=== PATIENT | female | born 1985 | race American Indian/Alaskan Native ===

== ENCOUNTER 2018-04-14 19:50 | Emergency (ER) | payer OTHER ==
[2018-04-14 20:10] VITALS: BP 122/100
--- NOTE | 2018-04-15 02:50 | Emergency Department Report ---
- General Chief Complaint: Upper Respiratory Infection Stated Complaint: FLU SYMPTOMS Time Seen by Provider: 04/15/18 02:45 Source: patient Mode of arrival: Ambulatory Limitations: No Limitations - History of Present Illness Initial Comments: 32-year-old Georgian female comes in for chills headache often nonproductive cough states that she coughs it wakes her up from sleep. States that she has occasional wheezing. She denies any fever. She reports that the symptoms have been going on for greater than 2 weeks. She does admit to having sick contact. Admits to nasal congestion headache frontally located, sinus pressure, cough, decrease in energy. She didn't taken her [id number] Flonase, Tylenol severe cold and flu, Benadryl, [place] cold and cough as well as Robitussin. MD Complaint: cough, nasal congestion, sinus pain -: week(s) (2) Severity scale (0 -10): 4 Consistency: intermittent Improves With: nothing Worsens With: nothing Context: sick contacts Associated Symptoms: chills, headache, nasal congestion, cough, right sweats. denies: fever, rhinorrhea, nausea, vomiting Treatments Prior to Arrival: "cold medicine" - Related Data Previous Rx's Medication Instructions Recorded Last Taken Type Albuterol Sulfate [Ventolin HFA] 2 puff IH Q4H PRN #1 hfa.aer.ad 05/10/14 Unknown Rx Azithromycin [Zithromax Z-ERNESTO] 250 mg PO DAILY #6 tablet 05/10/14 Unknown Rx Codeine Phosphate/Guaifenesin 10 ml PO Q6H PRN #8 oz 05/10/14 Unknown Rx [Guaifenesin-Codeine Syrup] methylPREDNISolone [Medrol Dose 4 mg PO BID #1 dosepack 05/10/14 Unknown Rx Ernesto] medroxyPROGESTERone ACETATE 5 mg PO QDAY #5 tablet 03/18/15 Unknown Rx [Provera] Benzonatate [Tessalon Perle] 100 mg PO TID #15 capsule 04/15/18 Unknown Rx Cephalexin [Keflex] 500 mg PO BID #14 capsule 04/15/18 Unknown Rx Allergies Allergy/AdvReac Type Severity Reaction Status Date / Time No Known Allergies Allergy Unverified 05/10/14 17:29 ED Review of Systems ROS: Stated complaint: FLU SYMPTOMS Other details as noted in HPI Constitutional: chills, malaise. denies: fever ENT: congestion. denies: ear pain, throat pain Respiratory: cough, wheezing Cardiovascular: denies: chest pain, palpitations Gastrointestinal: denies: abdominal pain, nausea, diarrhea ED Past Medical Hx - Past Medical History Previous Medical History?: Yes Hx Asthma: Yes Additional medical history: Vaginal delivery - Surgical History Past Surgical History?: Yes Additional Surgical History: hyster - Social History Smoking Status: Never Smoker Substance Use Type: None - Medications Home Medications: Home Medications Medication Instructions Recorded Confirmed Last Taken Type Albuterol Sulfate [Ventolin HFA] 2 puff IH Q4H PRN #1 hfa.aer.ad 05/10/14 Unknown Rx Azithromycin [Zithromax Z-ERNESTO] 250 mg PO DAILY #6 tablet 05/10/14 Unknown Rx Codeine Phosphate/Guaifenesin 10 ml PO Q6H PRN #8 oz 05/10/14 Unknown Rx [Guaifenesin-Codeine Syrup] methylPREDNISolone [Medrol Dose 4 mg PO BID #1 dosepack 05/10/14 Unknown Rx Ernesto] medroxyPROGESTERone ACETATE 5 mg PO QDAY #5 tablet 03/18/15 Unknown Rx [Provera] Benzonatate [Tessalon Perle] 100 mg PO TID #15 capsule 04/15/18 Unknown Rx Cephalexin [Keflex] 500 mg PO BID #14 capsule 04/15/18 Unknown Rx ED Physical Exam - General Limitations: No Limitations General appearance: alert, in no apparent distress - Head Head exam: Present: atraumatic, normocephalic - Eye Eye exam: Present: normal appearance - ENT ENT exam: Present: mucous membranes moist - Neck Neck exam: Present: normal inspection - Respiratory Respiratory exam: Present: normal lung sounds bilaterally. Absent: respiratory distress - Cardiovascular Cardiovascular Exam: Present: regular rate, normal rhythm. Absent: systolic murmur, diastolic murmur, rubs, gallop - GI/Abdominal GI/Abdominal exam: Present: soft, normal bowel sounds - Extremities Exam Extremities exam: Present: normal inspection - Back Exam Back exam: Present: normal inspection - Neurological Exam Neurological exam: Present: alert, oriented X3 - Psychiatric Psychiatric exam: Present: normal affect, normal mood - Skin Skin exam: Present: warm, dry, intact, normal color. Absent: rash ED Course Vital Signs 04/14/18 20:06 Temperature 98.5 F Pulse Rate 88 Respiratory 16 Rate Blood Pressure 122/100 O2 Sat by Pulse 97 Oximetry ED Medical Decision Making - Medical Decision Making Patient has been evaluated by this provider fast track. Complete antibiotics as prescribed. Take cough medication as needed. If symptoms persist or gets worse please follow up with her primary care provider. Critical care attestation.: If time is entered above; I have spent that time in minutes in the direct care of this critically ill patient, excluding procedure time. ED Disposition Clinical Impression: Upper respiratory infection, acute Acute sinusitis Qualifiers: Sinusitis location: pansinusitis Recurrence: non-recurrent Qualified Code(s): J01.40 - Acute pansinusitis, unspecified Disposition: TO HOME OR SELFCARE Is pt being admited?: No Does the pt Need Aspirin: No Condition: Stable Instructions: Upper Respiratory Infection (ED) Additional Instructions: Please complete antibiotics as prescribed. Take cough medication as prescribed. Continue taking her Zyrtec's and using her Flonase. If her symptoms persist or gets worse follow-up with her primary care provider Prescriptions: Benzonatate [Tessalon Perle] 100 mg PO TID #15 capsule Cephalexin [Keflex] 500 mg PO BID #14 capsule Referrals: TERRY CROWLEY MD [Primary Care Provider] - 3-5 Days CHUN GREENFIELD MD [Referring] - 3-5 Days Forms: Work/School Release Form(ED)
== END 2018-04-15 03:00 | disposition home or self-care (01) ==
LOC: ED 19:50
DX: J06.9 Acute upper respiratory infection, unspecified (principal); J01.40 Acute pansinusitis, unspecified; J45.909 Unspecified asthma, uncomplicated; Z90.710 Acquired absence of both cervix and uterus
CPT/HCPCS: 99282

== ENCOUNTER 2019-08-18 16:07 | Emergency (ER) | payer OTHER ==
--- NOTE | 2019-08-18 20:56 | Emergency Department Report ---
ED Extremity Problem HPI - General Chief complaint: Abdominal Pain Stated complaint: GROIN PAIN Time Seen by Provider: 08/18/19 20:22 Source: patient Mode of arrival: Ambulatory Limitations: No Limitations - History of Present Illness Initial comments: There is a pleasant 33-year-old female presents to the emergency department with a chief complaint of left hip pain for the last 2 months. She has been seen by her primary care doctor multiple times she states as often as 2-3 times a week and they have treated her for lower back pain however she states she is not getting any relief from hydrocodone, multiple different muscle relaxers and anti-inflammatories. She reports the pain has always been in the anterior left hip and it's aggravated by movement. She denies any injuries. She states this started after attending a parade 2 months ago. She states she stood in one spot for 4 hours straight and when she got up to start walking in she started having pain which she reports associated pain with any movement. She states this is limiting her ability to walk or move and work due to severe pain. She denies any known past medical history, current medication use or known allergies to medications that she is aware of. Pain is 8 out of 10 in severity and by movement. Immobility mildly relieves her pain. She denies radiating pain, abdominal pain, nausea, vomiting, diarrhea, dysuria, urinary frequency, urinary urgency, back pain, weakness or any other associated symptoms. MD Complaint: extremity pain Severity scale (0 -10): 7 - Related Data Previous Rx's Medication Instructions Recorded Last Taken Type Albuterol Sulfate [Ventolin HFA] 2 puff IH Q4H PRN #1 hfa.aer.ad 05/10/14 Unknown Rx Azithromycin [Zithromax Z-ERNESTO] 250 mg PO DAILY #6 tablet 05/10/14 Unknown Rx Codeine Phosphate/Guaifenesin 10 ml PO Q6H PRN #8 oz 05/10/14 Unknown Rx [Guaifenesin-Codeine Syrup] methylPREDNISolone [Medrol Dose 4 mg PO BID #1 dosepack 05/10/14 Unknown Rx Ernesto] medroxyPROGESTERone ACETATE 5 mg PO QDAY #5 tablet 03/18/15 Unknown Rx [Provera] Benzonatate [Tessalon Perle] 100 mg PO TID #15 capsule 04/15/18 Unknown Rx Cephalexin [Keflex] 500 mg PO BID #14 capsule 04/15/18 Unknown Rx methylPREDNISolone [Medrol 4MG 4 mg PO ONCE #1 tab.ds.pk 08/18/19 Unknown Rx DOSEPAK (21 tabs)] Allergies Allergy/AdvReac Type Severity Reaction Status Date / Time No Known Allergies Allergy Unverified 05/10/14 17:29 ED Review of Systems ROS: Stated complaint: GROIN PAIN Other details as noted in HPI Comment: All other systems reviewed and negative Constitutional: denies: chills, fever Eyes: denies: eye pain, eye discharge, vision change ENT: denies: ear pain, throat pain Respiratory: denies: cough, shortness of breath, wheezing Cardiovascular: denies: chest pain, palpitations Endocrine: no symptoms reported Gastrointestinal: denies: abdominal pain, nausea, diarrhea Genitourinary: denies: urgency, dysuria, discharge Musculoskeletal: as per HPI, arthralgia. denies: back pain, joint swelling Skin: denies: rash, lesions Neurological: denies: headache, weakness, paresthesias Psychiatric: denies: anxiety, depression Hematological/Lymphatic: denies: easy bleeding, easy bruising ED Past Medical Hx - Past Medical History Previous Medical History?: Yes Hx Asthma: Yes Additional medical history: Vaginal delivery - Surgical History Past Surgical History?: Yes Additional Surgical History: hyster - Social History Smoking Status: Never Smoker Substance Use Type: None - Medications Home Medications: Home Medications Medication Instructions Recorded Confirmed Last Taken Type Albuterol Sulfate [Ventolin HFA] 2 puff IH Q4H PRN #1 hfa.aer.ad 05/10/14 Unknown Rx Azithromycin [Zithromax Z-ERNESTO] 250 mg PO DAILY #6 tablet 05/10/14 Unknown Rx Codeine Phosphate/Guaifenesin 10 ml PO Q6H PRN #8 oz 05/10/14 Unknown Rx [Guaifenesin-Codeine Syrup] methylPREDNISolone [Medrol Dose 4 mg PO BID #1 dosepack 05/10/14 Unknown Rx Ernesto] medroxyPROGESTERone ACETATE 5 mg PO QDAY #5 tablet 03/18/15 Unknown Rx [Provera] Benzonatate [Tessalon Perle] 100 mg PO TID #15 capsule 04/15/18 Unknown Rx Cephalexin [Keflex] 500 mg PO BID #14 capsule 04/15/18 Unknown Rx methylPREDNISolone [Medrol 4MG 4 mg PO ONCE #1 tab.ds.pk 08/18/19 Unknown Rx DOSEPAK (21 tabs)] ED Physical Exam - General Limitations: No Limitations General appearance: alert, in no apparent distress - Head Head exam: Present: atraumatic, normocephalic - Eye Eye exam: Present: normal appearance - ENT ENT exam: Present: mucous membranes moist - Neck Neck exam: Present: normal inspection - Respiratory Respiratory exam: Present: normal lung sounds bilaterally. Absent: respiratory distress - Cardiovascular Cardiovascular Exam: Present: regular rate, normal rhythm. Absent: systolic murmur, diastolic murmur, rubs, gallop - GI/Abdominal GI/Abdominal exam: Present: soft, normal bowel sounds - Extremities Exam Extremities exam: Present: normal inspection, other (no reproducible tenderness to the left hip, back or lumbar spine. Patient is able to tolerate passive range of motion however with active range of motion she has severe pain. There is normal DP and PT pulses, normal popliteal pulses normal femoral pulses of the left leg. There is no posterior calf tenderness or swelling and a negative Homans sign.) - Back Exam Back exam: Present: normal inspection - Neurological Exam Neurological exam: Present: alert, oriented X3 - Psychiatric Psychiatric exam: Present: normal affect, normal mood - Skin Skin exam: Present: warm, dry, intact, normal color. Absent: rash ED Course Vital Signs 08/18/19 08/18/19 16:25 20:22 Temperature 98.4 F 98.3 F Pulse Rate 85 72 Respiratory 18 Rate Blood Pressure 124/81 Blood Pressure 145/98 [Left] O2 Sat by Pulse 100 Oximetry ED Medical Decision Making - Lab Data Result diagrams: 08/18/19 21:00 08/18/19 21:00 Lab Results 08/18/19 08/18/19 Range/Units 21:00 21:00 WBC 7.6 (4.5-11.0) K/mm3 RBC 4.40 (3.65-5.03) M/mm3 Hgb 12.4 (10.1-14.3) gm/dl Hct 37.5 (30.3-42.9) % MCV 85 (79-97) fl MCH 28 (28-32) pg MCHC 33 (30-34) % RDW 14.2 (13.2-15.2) % Plt Count 207 (140-440) K/mm3 Lymph % (Auto) 41.9 H (13.4-35.0) % [place] % (Auto) 5.9 (0.0-7.3) % Eos % (Auto) 2.1 (0.0-4.3) % Baso % (Auto) 0.7 (0.0-1.8) % Lymph # 3.2 (1.2-5.4) K/mm3 [place] # 0.4 (0.0-0.8) K/mm3 Eos # 0.2 (0.0-0.4) K/mm3 Baso # 0.1 (0.0-0.1) K/mm3 Seg Neutrophils % 49.4 (40.0-70.0) % Seg Neutrophils # 3.8 (1.8-7.7) K/mm3 Sodium 139 (137-145) mmol/L Potassium 3.6 (3.6-5.0) mmol/L Chloride 101.7 (98-107) mmol/L Carbon Dioxide 22 (22-30) mmol/L Anion Gap 19 mmol/L BUN 10 (7-17) mg/dL Creatinine 0.8 (0.7-1.2) mg/dL Estimated GFR > 60 ml/min BUN/Creatinine Ratio 13 % Glucose 95 (65-100) mg/dL Calcium 9.4 (8.4-10.2) mg/dL Total Bilirubin 0.20 (0.1-1.2) mg/dL AST 14 (5-40) units/L ALT 14 (7-56) units/L Alkaline Phosphatase 85 (35-129) units/L C-Reactive Protein 0.60 (0.00-1.30) mg/dL Total Protein 7.9 (6.3-8.2) g/dL Albumin 4.4 (3.9-5) g/dL Albumin/Globulin Ratio 1.3 % - Radiology Data Radiology results: report reviewed, image reviewed XRay Report Signed Patient: STEPH TSANG MR#: [id number] : 1985 Acct:[id number] Age/Sex: 33 / F ADM Date: 08/18/19 Loc: ED Attending Dr: Ordering Physician: MELANIA MOREAU Date of Service: 08/18/19 Procedure(s): XR hip 2-3V LT Accession Number(s): [id number] cc: MELANIA MOREAU Fluoro Time In Minutes: LEFT HIP 2 VIEW(S) INDICATION / CLINICAL INFORMATION: pain to anterior hip COMPARISON: None available. FINDINGS: BONES / JOINT(S): No acute fracture or subluxation. No significant arthritis. SOFT TISSUES: No significant abnormality. ADDITIONAL FINDINGS: None. Signer Name: Jan Ferro MD Signed: 08/18/2019 9:53 PM Workstation Name: [id number] - Medical Decision Making The patient's presenting complaint and did order labs including a CBC, CMP and CRP which all returned relatively normal. The patient had no risk factors for osteomyelitis and with a negative CRP and white count I think this is unlikely. I did order an x-ray to rule out osteonecrosis and there is no evidence of this. There was decreased joint spacing between the femoral acetabular joint aspirate this could be secondary to her pain. I'll suspect this might be secondary to impingement syndrome of the hip. I did recommend the patient follow up with orthopedics which I will give her referral to. Patient was instructed to return emergently changing worsening symptoms. Wells criteria is low risk for DVT and there is no lower sternum edema and normal DP and PT pulses. Patient was instructed to return emergently changing worsening symptoms. She understand it and verbalized diagnosis, treatment plan and follow-up instructions. - Differential Diagnosis fracture, strain, sprain, impingement syndrome, avascular necrosis, osteom, Critical care attestation.: If time is entered above; I have spent that time in minutes in the direct care of this critically ill patient, excluding procedure time. ED Disposition Clinical Impression: Left hip pain Disposition: - TO HOME OR SELFCARE Is pt being admited?: No Does the pt Need Aspirin: No Condition: Stable Instructions: Arthralgia (ED) Prescriptions: methylPREDNISolone [Medrol 4MG DOSEPAK (21 tabs)] 4 mg PO ONCE #1 tab.ds.pk [facility]: [facility] [Primary Care Provider] - 3-5 Days CARLOS CARCAMO MD [Staff Physician] - 3-5 Days Forms: Work/School Release Form(ED) Time of Disposition: 22:47
[2019-08-18 21:17] LABS: Basophils # (Auto) 0.1 K/mm3 (0.0-0.1); Basophils % (Auto) 0.7 % (0.0-1.8); Eosinophils # (Auto) 0.2 K/mm3 (0.0-0.4); Eosinophils % (Auto) 2.1 % (0.0-4.3); Hematocrit 37.5 % (30.3-42.9); Hemoglobin 12.4 gm/dl (10.1-14.3); Lymphocytes # (Auto) 3.2 K/mm3 (1.2-5.4); Lymphocytes % (Auto) 41.9 % (13.4-35.0); Mean Corpuscular HGB Conc 33 % (30-34); Mean Corpuscular Volume 85 fl (79-97); Monocytes # (Auto) 0.4 K/mm3 (0.0-0.8); Monocytes % (Auto) 5.9 % (0.0-7.3); Platelet Count 207 K/mm3 (140-440); Red Cell Distribution Width 14.2 % (13.2-15.2)
[2019-08-18 21:32] LABS: Alanine Aminotransferase 14 units/L (7-56); Albumin 4.4 g/dL (3.9-5); BUN/Creatinine Ratio 13; Blood Urea Nitrogen 10 mg/dL (7-17); Calcium 9.4 mg/dL (8.4-10.2); Hemolysis Index 2
--- NOTE | 2019-08-18 21:57 | XRay Report ---
LEFT HIP 2 VIEW(S) INDICATION / CLINICAL INFORMATION: pain to anterior hip COMPARISON: None available. FINDINGS: BONES / JOINT(S): No acute fracture or subluxation. No significant arthritis. SOFT TISSUES: No significant abnormality. ADDITIONAL FINDINGS: None. Signer Name: Jan Ferro MD Signed: 08/18/2019 9:53 PM Workstation Name: [id number]
[2019-08-18] MEDS ORDERED: oxyCODONE /ACETAMINOPHEN 5-325MG TAB PO ONE (22:43)
[2019-08-18 23:04] VITALS: BP 149/94
== END 2019-08-18 23:04 | disposition home or self-care (01) ==
LOC: ED 16:07
DX: M25.552 Pain in left hip (principal); J45.909 Unspecified asthma, uncomplicated; Z79.899 Other long term (current) drug therapy
CPT/HCPCS: 36415; 80053; 85025; 86140; 99284

== ENCOUNTER 2021-01-28 09:15 | Emergency (ER) | payer OTHER ==
[2021-01-28 09:48] VITALS: BP 135/84
--- NOTE | 2021-01-28 10:36 | XRay Report ---
Right foot 3 views INDICATION: Foot pain FINDINGS: Degenerative change in the great toe MTP joint. Mild swelling surrounding the great toe MTP joint. Remaining MTP joints and IP joints appear normal. Small calcaneal spurs. IMPRESSION: 1. Soft tissue swelling surrounding the great toe MTP joint. These findings may be degenerative with soft tissue swelling surrounding the joint space however clinical correlation with inflammation, redn ess and history to exclude infection. Signer Name: Derick Shah MD Signed: 01/28/2021 10:31 AM Workstation Name: [id number]
--- NOTE | 2021-01-28 10:47 | Emergency Department Report ---
ED Lower Extremity HPI - General Chief Complaint: Extremity Injury, Lower Stated Complaint: RT FOOT/LEG PAIN Time Seen by Provider: 01/28/21 09:56 Source: patient Mode of arrival: Wheelchair Limitations: No Limitations - History of Present Illness Initial Comments: This is a 35-year-old female nontoxic, well nourished in appearance, no acute signs of distress presents to the ED with c/o of right foot pain with radiation to knee 1 week. Patient denies any trauma or injuries. Patient denies any numbness, tingling, fever, chills, nausea, vomiting, chest pain, shortness of breath, headache, stiff neck. Patient denies any joint swelling or joint re dness. Patient denies decreased range of motion. Patient stated has decreased gait due to pain. Patient denies any calf pain or swelling. Patient denies any recent travels, long car rides or recent hospital stays. Patient stated allergies to penicillin. -: week(s) Injury: Foot: Right Severity: mild Severity scale (0 -10): 8 Improves With: rest Worsens With: palpation Associated Symptoms: able to partially bear weight. denies: snap/pop sensation, swelling, numbness, tingling, unable to bear weight - Related Data Previous Rx's Medication Instructions Recorded Last Taken Type Albuterol Sulfate [Ventolin HFA] 2 puff IH Q4H PRN #1 hfa.aer.ad 05/10/14 Unknown Rx Azithromycin [Zithromax Z-ERNESTO] 250 mg PO DAILY #6 tablet 05/10/14 Unknown Rx Codeine Phosphate/Guaifenesin 10 ml PO Q6H PRN #8 oz 05/10/14 Unknown Rx [Guaifenesin-Codeine Syrup] methylPREDNISolone [Medrol Dose 4 mg PO BID #1 dosepack 05/10/14 Unknown Rx Ernesto] medroxyPROGESTERone ACETATE 5 mg PO QDAY #5 tablet 03/18/15 Unknown Rx [Provera] Benzonatate [Tessalon Perle] 100 mg PO TID #15 capsule 04/15/18 Unknown Rx cephALEXin [Keflex] 500 mg PO BID #14 capsule 04/15/18 Unknown Rx methylPREDNISolone [Medrol 4MG 4 mg PO ONCE #1 tab.ds.pk 08/18/19 Unknown Rx DOSEPAK (21 tabs)] Naproxen 500 mg PO Q12H PRN #12 tablet 01/28/21 Unknown Rx Allergies Allergy/AdvReac Type Severity Reaction Status Date / Time amoxicillin AdvReac Itching Verified 01/28/21 09:48 Penicillins AdvReac Itching Verified 01/28/21 09:48 ED Review of Systems ROS: Stated complaint: RT FOOT/LEG PAIN Other details as noted in HPI Constitutional: denies: chills, fever Eyes: denies: eye pain, eye discharge, vision change ENT: denies: ear pain, throat pain Respiratory: denies: cough, shortness of breath, wheezing Cardiovascular: denies: chest pain, palpitations Endocrine: no symptoms reported Gastrointestinal: denies: abdominal pain, nausea, diarrhea Genitourinary: denies: urgency, dysuria, discharge Musculoskeletal: denies: back pain, joint swelling, arthralgia Skin: denies: rash, lesions Neurological: denies: headache, weakness, paresthesias Psychiatric: denies: anxiety, depression Hematological/Lymphatic: denies: easy bleeding, easy bruising ED Past Medical Hx - Past Medical History Hx Asthma: Yes Additional medical history: Vaginal delivery - Surgical History Additional Surgical History: hyster - Social History Smoking Status: Current Every Day Smoker Substance Use Type: None - Medications Home Medications: Home Medications Medication Instructions Recorded Confirmed Last Taken Type Albuterol Sulfate [Ventolin HFA] 2 puff IH Q4H PRN #1 hfa.aer.ad 05/10/14 Unknown Rx Azithromycin [Zithromax Z-ERNESTO] 250 mg PO DAILY #6 tablet 05/10/14 Unknown Rx Codeine Phosphate/Guaifenesin 10 ml PO Q6H PRN #8 oz 05/10/14 Unknown Rx [Guaifenesin-Codeine Syrup] methylPREDNISolone [Medrol Dose 4 mg PO BID #1 dosepack 05/10/14 Unknown Rx Ernesto] medroxyPROGESTERone ACETATE 5 mg PO QDAY #5 tablet 03/18/15 Unknown Rx [Provera] Benzonatate [Tessalon Perle] 100 mg PO TID #15 capsule 04/15/18 Unknown Rx cephALEXin [Keflex] 500 mg PO BID #14 capsule 04/15/18 Unknown Rx methylPREDNISolone [Medrol 4MG 4 mg PO ONCE #1 tab.ds.pk 08/18/19 Unknown Rx DOSEPAK (21 tabs)] Naproxen 500 mg PO Q12H PRN #12 tablet 01/28/21 Unknown Rx ED Physical Exam - General Limitations: No Limitations General appearance: alert, in no apparent distress - Head Head exam: Present: atraumatic, normocephalic - Eye Eye exam: Present: normal appearance - Neck Neck exam: Present: normal inspection, full ROM - Respiratory Respiratory exam: Absent: respiratory distress - Cardiovascular Cardiovascular Exam: Present: regular rate - Extremities Exam Extremities exam: Present: normal inspection, full ROM, tenderness, normal capillary refill. Absent: pedal edema, joint swelling, calf tenderness - Expanded Lower Extremity Exam Right Hip exam: Present: normal inspection, full ROM. Absent: tenderness, swelling Upper Leg exam: Present: normal inspection, full ROM. Absent: tenderness, swelling Knee exam: Present: normal inspection, full ROM, full knee extension. Absent: tenderness, swelling, abrasion, laceration, ecchymosis, deformity, crepidus, dislocation, erythema, effusion, pain w/ pronation/supination, posterior draw sign, pain/laxity with valgus, pain/laxity with varus Lower Leg exam: Present: normal inspection, full ROM. Absent: tenderness, swelling, abrasion, laceration, ecchymosis, deformity, crepidus, dislocation, erythema, palpable cord, Imelda's sign Ankle exam: Present: normal inspection, full ROM. Absent: tenderness, swelling, abrasion, laceration, ecchymosis, deformity, crepidus, dislocation, erythema, anterior draw sign Foot/Toe exam: Present: normal inspection, full ROM, tenderness. Absent: swelling, abrasion, laceration, ecchymosis, deformity, crepidus, dislocation, erythema, amputation, puncture wound, foreign body, calcaneal tenderness, tenderness at base of 5th metatarsal, nail avulsion, subungual hematoma Neuro vascular tendon exam: Present: no vascular compromise Gait: Positive: observed and limited by pain 1 - Pain noted here - Back Exam Back exam: Present: normal inspection, full ROM - Neurological Exam Neurological exam: Present: alert, oriented X3 - Psychiatric Psychiatric exam: Present: normal affect, normal mood - Skin Skin exam: Present: warm, dry, intact, normal color. Absent: rash ED Course Vital Signs 01/28/21 09:46 Temperature 98.3 F Pulse Rate 90 Respiratory 14 Rate Blood Pressure 135/84 O2 Sat by Pulse 100 Oximetry - Reevaluation(s) Reevaluation #1: 01/28/21 11:08 Patient is speaking in full sentences with no signs of distress noted. ED Lower Extremity MDM - Radiology Data [facility] [address] [place] [address] XRay Report Signed Patient: STEPH TSANG MR#: [id number] : 1985 Acct:[id number] Age/Sex: 35 / F ADM Date: 01/28/21 Loc: ED Attending Dr: Ordering Physician: JOJO JUAREZ NP Date of Service: 01/28/21 Procedure(s): XR foot 3+V RT Accession Number(s): [id number] cc: JOJO JUAREZ NP Fluoro Time In Minutes: Right foot 3 views INDICATION: Foot pain FINDINGS: Degenerative change in the great toe MTP joint. Mild swelling surrounding the great toe MTP joint. Remaining MTP joints and IP joints appear normal. Small calcaneal spurs. IMPRESSION: 1. Soft tissue swelling surrounding the great toe MTP joint. These findings may be degenerative with soft tissue swelling surrounding the joint space however clinical correlation with inflammation, redness and history to exclude infection. Signer Name: Derick Shah MD Signed: 01/28/2021 10:31 AM Workstation Name: [id number] Transcribed By: CW Dictated By: JACOBO SHAH MD Electronically Authenticated By: JACOBO SHAH MD Signed Date/Time: 01/28/21 1031 DD/ 1030 TD/TT: - Medical Decision Making This is a 35-year-old female that presents with right foot strain. Patient is stable and was examined by me. I referred patient to an orthopedic doctor for further evaluation for possible MRI. X-ray has been obtained and dictated by the radiologist. Patient is notified of the x-ray report with noted by the patient. Patient does have normal gait with no tenderness and no joint swelling. No ecchymosis. no joint redness or swelling. Not warm to touch. No signs of cellulites present. Patient be discharged with naproxen. Patient was instructed to RICE therapy. At time of discharge, the patient does not seem toxic or ill in appearance. No acute signs of distress noted. Patient agrees t o discharge treatment plan of care. No further questions noted by the patient. Critical care attestation.: If time is entered above; I have spent that time in minutes in the direct care of this critically ill patient, excluding procedure time. ED Disposition Clinical Impression: Right foot strain Qualifiers: Encounter type: initial encounter Qualified Code(s): S96.911A - Strain of unspecified muscle and tendon at ankle and foot level, right foot, initial encounter Disposition: TO HOME OR SELFCARE Is pt being admited?: No Does the pt Need Aspirin: No Condition: Stable Instructions: RICE Therapy for Routine Care of Injuries, [id number] Additional Instructions: Follow-up with a orthopedic doctor in 3-5 days or if symptoms worsen and continue return to emergency room as soon as possible. No physical activity that extremity until cleared by orthopedic doctor Prescriptions: Naproxen 500 mg PO Q12H PRN #12 tablet PRN Reason: Pain , Severe (7-10) Referrals: PRIMARY CARE, [Primary Care Provider] - 3-5 Days CARLOS CARCAMO MD [Staff Physician] - 3-5 Days Forms: Work/School Release Form(ED) Time of Disposition: 11:10
== END 2021-01-28 11:44 | disposition home or self-care (01) ==
LOC: ED 09:15
DX: S96.911A Strain of unspecified muscle and tendon at ankle and foot level, right foot, initial encounter (principal); J45.909 Unspecified asthma, uncomplicated; F17.200 Nicotine dependence, unspecified, uncomplicated; Z90.710 Acquired absence of both cervix and uterus; Z79.899 Other long term (current) drug therapy; Z88.1 Allergy status to other antibiotic agents; Z88.0 Allergy status to penicillin; X58.XXXA Exposure to other specified factors, initial encounter; Y93.89 Activity, other specified; Y92.89 Other specified places as the place of occurrence of the external cause; Y99.8 Other external cause status